=== PATIENT | male | born 1945 | race Caucasian/White ===

== ENCOUNTER 2020-09-15 16:16 | Outpatient (CLI) | payer MEDICARE, SELFPAY | END 2020-09-15 16:17 | disposition home or self-care (01) | LOC: ANHCOVIDVC 16:16 | PROVIDERS: PCP Family Medicine | DX: Z23 Encounter for immunization (principal) | CPT/HCPCS: 0001A; 91300 ==

== ENCOUNTER 2020-10-06 16:19 | Outpatient (CLI) | payer MEDICARE, SELFPAY | END 2020-10-06 16:20 | disposition home or self-care (01) | LOC: ANHCOVIDVC 16:20 | PROVIDERS: PCP Family Medicine | DX: Z23 Encounter for immunization (principal) | CPT/HCPCS: 0002A; 91300 ==

== ENCOUNTER 2021-03-10 11:13 | Outpatient (CLI) | payer MEDICARE, SELFPAY ==
--- NOTE | ~2021-03-10 | CT_ITS ---
EXAMINATION: CT lung screening DATE: 03/10/2021 11:42 INDICATION: Personal history of tobacco dependence, prior smoker with 50 pack year history TECHNIQUE: Computed tomography (CT) of the chest was performed without intravenous contrast. The dose -length product (DLP) was 198.56 mGy-cm. Automated exposure control and iterative reconstruction tech [employer] were employed. COMPARISON: None FINDINGS: There is mild emphysema. There is a 5 mm nodule of the right lower lobe on image 85. A 3 mm nodule is present in the right lower lobe on image 106. The lungs are free of acute opacities. There is no pleural effusion or pneumothorax. There is a 1.3 cm nodule of the left thyroid lobe. No pathol ogically enlarged thoracic lymph nodes are identified. The heart size is normal. Calcified coronary a rtery atherosclerosis is noted. There is mild thoracic spondylosis. IMPRESSION: 1. Lung-RADS category 2: Benign appearance or behavior. Continue annual screening with noncontrast lo w-dose chest CT in 12 months. Reviewed, dictated and finalized at location A. IMPRESSION: 1. Lung-RADS category 2: Benign appearance or behavior. Continue annual screeni ng with noncontrast low-dose chest CT in 12 months.
== END 2021-03-10 11:14 | disposition home or self-care (01) ==
PROVIDERS: PCP Family Medicine; Visit Provider Family Medicine
DX: Z12.2 Encounter for screening for malignant neoplasm of respiratory organs (principal); Z87.891 Personal history of nicotine dependence
CPT/HCPCS: 71271

== ENCOUNTER 2021-03-28 08:03 | Outpatient (CLI) | payer MEDICARE, SELFPAY ==
--- NOTE | ~2021-03-28 | US_ITS ---
EXAMINATION: US aorta [facility] scr[facility] DATE: 03/28/2021 09:21 CDT INDICATION: Diabetes. High cholesterol. TECHNIQUE: Grayscale, color Doppler, and pulsed Doppler images of the aorta and common iliac arteries were obtained. COMPARISON: None. FINDINGS: There is diffuse atherosclerosis. The proximal aorta measures 3.9 cm greatest sagittal dimension. The mid aorta measures 2.7 cm greatest sagittal dimension. The distal aorta measures 1.6 cm greatest sag ittal dimension. The right common internal iliac artery measures 1.6 cm. The left common iliac artery measures 1.6 cm. IMPRESSION: 1. Proximal abdominal aortic aneurysm measuring 3.9 cm. Reviewed, dictated and finalized at location A.
--- NOTE | ~2021-03-28 | US_ITS ---
Additional imaging US 03/28/2021 10:44 Indication: Screening for abdominal aortic aneurysm Procedure: High-resolution transabdominal ultrasound of the upper abdominal aorta Comparison: Aortic ultrasound dated 03/28/2021 Findings: There is atherosclerosis of the proximal abdominal aorta with suprarenal abdominal aortic a neurysm measuring 3.4 cm. Impression: 1: Suprarenal abdominal aortic aneurysm measuring 3.4 cm. Reviewed, dictated and finalized at location A. Impression: 1: Suprarenal abdominal aortic aneurysm measuring 3.4 cm.
== END 2021-03-28 08:04 | disposition home or self-care (01) ==
LOC: ANHIMG 08:06
PROVIDERS: PCP Family Medicine; Visit Provider Family Medicine
DX: Z13.6 Encounter for screening for cardiovascular disorders (principal); Z87.891 Personal history of nicotine dependence; I71.4 Abdominal aortic aneurysm, without rupture
CPT/HCPCS: 76706

== ENCOUNTER 2021-09-27 09:40 | Outpatient (CLI) | payer MEDICARE, SELFPAY ==
--- NOTE | ~2021-09-27 | US_ITS ---
EXAMINATION: US thyroid EXAM DATE: 09/27/2021 10:19 INDICATION: E04.1 - Nontoxic single thyroid nodule . TECHNIQUE: Multiple grayscale and Doppler images of the thyroid were obtained (by a technologist who performed the scan) and subsequently reviewed. Individual nodules and recommendations may be reporte d in accordance with TI-RADS system as designated by the 2017 ACR White Paper TI-RADS committee. The re is no prior study for comparison. FINDINGS: Right there are lobe measures 6.2 x 2.1 x 2.1 cm, the left measuring 5.7 x 2.6 x 1.9 cm. These dimens ions are moderately enlarged. There are scattered thyroid nodules. Largest nodule is category TR 4 in the left thyroid lobe measuring 1.3 cm. This category considered for biopsy if reaches 1.5 cm in size. Consider one-year follow-up. Right thyroid lobe nodules are sma ller, up to 1 cm. IMPRESSION: Multinodular goiter; recommend one-year follow-up ultrasound. Reviewed, dictated and finalized at location G.
== END 2021-09-27 09:41 | disposition home or self-care (01) ==
PROVIDERS: PCP Family Medicine; Visit Provider Family Medicine
DX: E04.2 Nontoxic multinodular goiter (principal)
CPT/HCPCS: 76536

== ENCOUNTER 2022-02-25 15:35 | Emergency (ER) | payer MEDICARE, SELFPAY ==
--- NOTE | ~2022-02-25 | CT_ITS ---
EXAMINATION: CT cervical spine wo con DATE: 02/25/2022 19:30 INDICATION: neck pain after head injury TECHNIQUE: Computed tomography (CT) of the cervical spine was performed without intravenous contrast. Automated exposure control and iterative reconstruction technique were employed. The dose-length pro duct was 390.84 mGy-cm. COMPARISON: None FINDINGS: Vertebral Body Alignment: Intact. Craniocervical and atlantoaxial alignment: Moderate degenerative change. Alignment intact. Osseous structures/fracture: No evidence of a lytic or blastic process in the visualized spine. No e vidence of acute fracture. Cervical soft tissues: The paraspinal soft tissues planes are maintained. Degenerative changes: Multilevel severe degenerative disc disease. Multilevel moderate central canal stenosis. Multilevel severe bilateral neural foraminal narrowing. IMPRESSION: No acute fracture or traumatic malalignment in the cervical spine. Reviewed, dictated and finalized at location K.
--- NOTE | ~2022-02-25 | CT_ITS ---
EXAMINATION: CT brain wo con DATE: 02/25/2022 19:30 INDICATION: head injury . TECHNIQUE: Computed tomography (CT) of the head was performed without intravenous contrast. The mA wa s adjusted according to patient size. Iterative reconstruction technique was employed. The dose-lengt h product was 605.33 mGy-cm. COMPARISON: None FINDINGS: No acute intracranial hemorrhage or extra-axial fluid collection. No hydrocephalus, mass, or herniation. No acute ischemic infarct. Unremarkable dural venous sinus attenuation. No acute osseous abnormality. Left posterior ethmoid air cell cyst or polyp. 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 Aerated spaces are clear. Mild atrophy and chronic white matter change. Atherosclerotic intracranial calcification. Bilateral l ens replacements. IMPRESSION: No acute intracranial process. Reviewed, dictated and finalized at location K.
[2022-02-25 16:29] VITALS: BP 132/86; PULSE 87; RESP 14; TEMP 36.1; O2SAT 97
[2022-02-25 18:17] VITALS: O2SAT 99
--- NOTE | 2022-02-25 18:39 | ED.GENADULT ---
HPI - General Adult General Chief complaint: Head Injury Stated complaint: head laceration Time Seen by Provider: 02/25/22 18:01 History of Present Illness HPI narrative: 76-year-old male presented to the emergency department for evaluation after receiving a head injury. Patient states he was attempting to move some furniture when a glass goblet fell and struck him on the head. Patient did receive a scalp laceration. Bleeding was controlled upon arrival to the emergency department. Patient denies any loss of consciousness. Patient states he has since developed neck pain from waiting in the waiting room. Related Data Home Medications Medication Instructions Recorded Confirmed omega-3 fatty acids 1,000 mg 1,000 mg PO DAILY 08/31/20 09/19/21 capsule (Fish Oil Concentrate) vitamins A,C,Y-dtly-mydeec 14,320 1 cap PO BID 08/31/20 09/19/21 unit-226 mg-200 unit capsule (PreserVision AREDS) Allergies Allergy/AdvReac Type Severity Reaction Status Date / Time No Known Allergies Allergy Verified 02/25/22 18:22 [facility] Past Medical History Medical History Left thyroid nodule Surgical History Surgical History History of surgical procedure on eye proper using laser (~2018) Family History Family History Grandparent Diabetes mellitus Mother Diabetes mellitus Family history of malignant neoplasm of cervix Social History Social History Second hand tobacco smoke exposure: No Smoking end date: 07/08/16 Alcohol intake: never Exam Narrative: APPEARANCE: Well appearing, no pain, no distress, well-nourished. HEAD: normocephalic, atraumatic. EYES: PERRLA/EOMI, conjunctivae clear. NOSE: Normal no drainage NECK: Supple. No adenopathy, no masses. RESPIRATORY: Airway patent, respirations nonlabored. Clear to auscultation bilaterally, no rales, rhonchi, wheezing. CARDIOVASCULAR: Regular rate and rhythm without murmurs rubs or gallops. ABDOMINAL: Soft, nontender, nondistended, normal bowel sounds MUSCULOSKELETAL: Moves all extremities. Strength/ROM intact, No edema, No calf tenderness. NEURO: Alert. Cranial nerves II through XII intact. Good gait. Good coordination SKIN: Scalp laceration PSYCHIATRIC: Normal affect/mood. Course Course Emergency Course: Head and neck CT were negative. Scalp laceration was repaired with chico as described. Patient was comfortable to plan for discharge and close follow-up. Vital Signs Vital signs: Vital Signs Temperature 97.0 F L 02/25/22 16:29 Pulse Rate 87 02/25/22 16:29 Respiratory Rate 14 02/25/22 16:29 Blood Pressure 132/86 02/25/22 16:29 Pulse Oximetry 97 02/25/22 16:29 Oxygen Delivery Room Air 02/25/22 16:29 Temperature 97.0 F L 02/25/22 16:29 Pulse Rate 56 L 02/25/22 20:02 Respiratory Rate 20 02/25/22 20:02 Blood Pressure 128/82 02/25/22 20:02 Pulse Oximetry 97 02/25/22 20:02 Oxygen Delivery Room Air 02/25/22 18:17 Procedures Laceration Laceration 1: Date: 02/25/22 Time: 20:00 Site: scalp Description: linear Depth: simple, single layer Local Anesthetic: lidocaine 1% Amount of anesthesia used (mL): 3 Pre-repair: wound explored and irrigated ====== Skin Level ====== Skin layer closed with: chico Number of sutures: 3 ====== Subcutaneous Layer ====== ====== Muscle Layer ====== ====== Tendon Layer ====== Medical Decision Making Vital Signs Vital Signs: Vital Signs Temperature 97.0 F L 02/25/22 16:29 Pulse Rate 87 02/25/22 16:29 Respiratory Rate 14 02/25/22 16:29 Blood Pressure 132/86 02/25/22 16:29 Pulse Oximetry 97 02/25/22 16:29 Oxygen Delivery Room Air 02/25/22 16:29 [place]a
[2022-02-25 20:02] VITALS: BP 128/82; PULSE 56; RESP 20; O2SAT 97
== END 2022-02-25 20:16 | disposition home or self-care (01) ==
PROVIDERS: Emergency Provider Emergency Medicine; PCP Family Medicine
DX: S01.01XA Laceration without foreign body of scalp, initial encounter (principal); Z87.891 Personal history of nicotine dependence; W20.8XXA Other cause of strike by thrown, projected or falling object, initial encounter
CPT/HCPCS: 12001; 70450; 72125; 99282; 99284

== ENCOUNTER 2022-04-17 07:33 | Outpatient (CLI) | payer MEDICARE, SELFPAY ==
--- NOTE | ~2022-04-17 | US_ITS ---
EXAMINATION: US aorta DATE: 04/17/2022 08:46 INDICATION: Abdominal aortic aneurysm without rupture. TECHNIQUE: Grayscale, color Doppler, and pulsed Doppler images of the aorta and common iliac arteries were obtained. COMPARISON: CT chest 04/17/2022, ultrasound aorta 03/28/2021 FINDINGS: The aorta demonstrates a 3.2 cm fusiform infrarenal aneurysm. The right common iliac artery is normal in caliber. The left common iliac artery is normal in caliber. IMPRESSION: 1. Stable 3.2 cm fusiform infrarenal aortic aneurysm. Reviewed, dictated and finalized at location A.
--- NOTE | ~2022-04-17 | CT_ITS ---
EXAMINATION: CT lung screening DATE: 04/17/2022 07:57 INDICATION: Personal history of nicotine dependence, prior smoker with 30 pack year history TECHNIQUE: Computed tomography (CT) of the chest was performed without intravenous contrast. The dose -length product (DLP) was 170.28 mGy-cm. Automated exposure control and iterative reconstruction tech [employer] were employed. COMPARISON: 03/10/2021 FINDINGS: There is mild emphysema. There is a stable 5 mm nodule of the right lower lobe on image 89. There is a stable 3 mm nodule of the right lower lobe on image 112. No pleural effusion or pneumotho rax. The lungs are free of acute opacities. No pathologically enlarged thoracic lymph nodes are ident ified. The heart size is normal. A stable left thyroid nodule is noted. There is calcified coronary a rtery atherosclerosis. There is a 2 mm nonobstructing stone of the left kidney upper pole. There is m ild thoracic spondylosis. IMPRESSION: 1. Lung-RADS category 2: Benign appearance or behavior. Continue annual screening with noncontrast lo w-dose chest CT in 12 months. Reviewed, dictated and finalized at location A. IMPRESSION: 1. Lung-RADS category 2: Benign appearance or behavior. Continue annual screeni ng with noncontrast low-dose chest CT in 12 months.
== END 2022-04-17 07:34 | disposition home or self-care (01) ==
PROVIDERS: PCP Family Medicine; Visit Provider Nurse Practitioner Family
DX: Z12.2 Encounter for screening for malignant neoplasm of respiratory organs (principal); Z87.891 Personal history of nicotine dependence; I71.40 Abdominal aortic aneurysm, without rupture, unspecified
CPT/HCPCS: 71271; 76775

== ENCOUNTER 2022-04-30 09:36 | Outpatient (CLI) | payer MEDICARE, SELFPAY ==
--- NOTE | ~2022-04-30 | NM_ITS ---
EXAMINATION: NM tory stress w perfusion DATE: 04/30/2022 11:59 INDICATION: Dyspnea on exertion TECHNIQUE: Rest images were obtained following intravenous administration of 10.6 mCi Tc99m tetrofosm in (Myoview). The patient was infused intravenously with Lexiscan (Regadenoson). Then, 31.8 mCi Tc99m tetrofosmin (Myoview) was administered intravenously, and stress images were obtained. Data was sandra nstructed into short axis and horizontal and vertical long axis SPECT images. Gated SPECT images were also obtained. COMPARISON: None. FINDINGS: There is no definite reversible or fixed perfusion abnormality to suggest ischemia or infar ction. There is normal left ventricular chamber size, wall motion and ejection fraction. Left ventr icular ejection fraction measures 67%. IMPRESSION: 1. Normal myocardial perfusion at rest and during stress. 2. Left ventricular ejection fraction measuring 67%. Reviewed, dictated and finalized at location A.
--- NOTE | 2022-04-30 09:38 | EST_ITS ---
Patient Info Name: Kwasi Jordan Age: 76 years : 1945 Gender: Male Ht: 72 in Wt: 209 lbs BSA: 2.21 m2 Exam Date: 04/30/2022 10:40 AM Exam Location: [facility] Stress Patient Status: Outpatient Admit Date: 04/30/2022 Staff Ordering Physician: Judy Orellana NP Attending Provider: Judy Orellana NP Exercise Technologist: Elizabeth Junior RDCS Exercise Physician: Ty Vickers DO Exam Type: CA stress tory w NM Study Info Indications R06.09 - Other forms of dyspnea A regadenoson stress test was performed. Summary 1. 1. Negative lexiscan stress test for ischemic ST changes by ECG criteria. 2. 2. Stable hemodynamics throughout the test. 3. 3. Nuclear scan to follow and will be reported separately. Please correlate with it. 4. 4. Patient informed of the above results. Protocol: Lexiscan Stress ECG Details Stage: REST Duration (min): 0 min : 41 sec HR (bpm): 59 SBP (mmHg): 129 DBP (mmHg): 76 Stage: REST Duration (min): 5 min : 14 sec HR (bpm): 59 SBP (mmHg): 129 DBP (mmHg): 76 Stage: STAGE 1 Duration (min): 1 min : 0 sec HR (bpm): 56 SBP (mmHg): 115 DBP (mmHg): 76 Stage: RECOVERY Duration (min): 1 min : 0 sec HR (bpm): 69 SBP (mmHg): 124 DBP (mmHg): 74 Stage: RECOVERY Duration (min): 2 min : 0 sec HR (bpm): 70 SBP (mmHg): 124 DBP (mmHg): 74 Stage: RECOVERY Duration (min): 3 min : 0 sec HR (bpm): 70 SBP (mmHg): 121 DBP (mmHg): 74 Stage: RECOVERY Duration (min): 3 min : 3 sec HR (bpm): 70 SBP (mmHg): 121 DBP (mmHg): 74 Rest HR: 59 bpm Peak HR: 71 bpm Rest Sys BP: 129 mmHg Peak Sys BP: 124 mmHg Max Pred HR: 145 bpm % Max Pred HR: 49 % Target HR: 123 bpm Max RPP: 8,804 bpm*mmHg Termination Reason: Completed protocol Cardiac Symptoms: Shortness of breath Total Time: 1 min : 0 sec Rest Wilkins BP: 76 mmHg Peak Wilkins BP: 74 mmHg Total Dose: 0.4 mg Resting ECG Sinus bradycardia. Stress ECG No ST changes. Arrhythmias None. Report Signatures
== END 2022-04-30 09:37 | disposition home or self-care (01) ==
PROVIDERS: PCP Family Medicine; Visit Provider Nurse Practitioner Family
DX: R06.09 Other forms of dyspnea (principal)
CPT/HCPCS: 78452; 93017; A9502; J2785

== ENCOUNTER 2022-06-08 15:53 | Emergency (ER) | payer MEDICARE, SELFPAY ==
[2022-06-08 16:02] VITALS: BP 96/64; PULSE 70; RESP 16; TEMP 36.1; O2SAT 97
--- NOTE | 2022-06-08 16:26 | ED.URI ---
HPI - URI/Sore Throat General Chief Complaint: Upper Respiratory Infection Stated Complaint: cough, sore throat, sinus drainage Time Seen by Provider: 06/08/22 16:05 Source: patient Mode of arrival: ambulatory Limitations: no limitations History of Present Illness HPI Narrative: Kwasi is a 76-year-old male patient presenting to the clinic today with complaints of cough, sore throat, and nasal drainage x1-2days. He denies any chest pain, shortness of breath, fever or chills. MD elicited complaint: sore throat and nasal congestion Related Data Home Medications Medication Instructions Recorded Confirmed omega-3 fatty acids 1,000 mg 1,000 mg PO DAILY 08/31/20 04/05/22 capsule (Fish Oil Concentrate) vitamins A,C,Z-aulr-hwaang 14,320 1 cap PO BID 08/31/20 04/05/22 unit-226 mg-200 unit capsule (PreserVision AREDS) ferrous sulfate 325 mg (65 mg 325 mg PO DAILY 04/05/22 04/05/22 iron) tablet (Feosol) Allergies Allergy/AdvReac Type Severity Reaction Status Date / Time No Known Allergies Allergy Verified 06/08/22 16:14 Review of Systems Review of Systems: Pertinent positives per HPI. Patient denies any fever, chills, rash, headache, visual changes, dizziness, shortness of breath, chest pain, palpitations, nausea, vomiting, diarrhea, constipation, abdominal pain, or any urinary issues. [facility] Past Medical History Medical History Abdominal aortic aneurysm (AAA) 3.0 cm to 5.5 cm in diameter in male Depression Dyslipidemia Erectile dysfunction Former smoker History of subdural hematoma Idiopathic peripheral neuropathy Left thyroid nodule Type 2 diabetes mellitus without complication, without long-term current use of insulin Surgical History Surgical History History of surgical procedure on eye proper using laser (~2018) Family History Family History Grandparent Diabetes mellitus Mother Diabetes mellitus Family history of malignant neoplasm of cervix Social History Social History Smoking status: Former smoker Second hand tobacco smoke exposure: No Smoking end date: 07/08/16 Alcohol intake: never Substance use: never Substance use type: does not use Additional living arrangements comments: Gender identity (if verbalized by the patient): Male Sexual Orientation (if Verbalized by the Patient): Straight or Heterosexual Comments At the time of my signature, I reviewed and agree with the nursing past medical, surgical, social, and family history. There is no relevant family history pertinent to the patient complaint. Exam Narrative: General: Well-developed, well nourished, in no apparent distress Head: Normocephalic, atraumatic Eyes: Pupils equally round and reactive to light bilaterally, EOM intact, sclera and conjunctive clear, no discharge, lids normal Ears: TMs intact and clear, ear canals clear, no drainage, grossly hearing normal. Nose: Nares patent, no discharge, no inflammation, no sinus tenderness. Mouth: Oral pharynx without lesions or masses, good dentition, MMM. Neck: Supple, trachea midline, no enlargement of anterior or posterior cervical nodes, no thyroid masses or goiter palpable. Cardio: Regular rate and rhythm, s1 and s2 normal, no murmur appreciated. Resp: Clear to auscultation bilaterally, no rhonchi, rales, wheezing or rubs Course Course Emergency Course: Portions of this record may have been created with voice recognition software. Level of Care: Express Care Visit Vital Signs Vital signs: Vital Signs Temperature 36.1 C L 06/08/22 16:02 Pulse Rate 70 06/08/22 16:02 Respiratory Rate 16 06/08/22 16:02 Blood Pressure 96/64 L 06/08/22 16:02 Pulse Oximetry 97 06/08/22 16:02 Temperature
== END 2022-06-08 16:34 | disposition home or self-care (01) ==
PROVIDERS: Emergency Provider Nurse Practitioner Family; PCP Family Medicine
DX: J06.9 Acute upper respiratory infection, unspecified (principal); E11.9 Type 2 diabetes mellitus without complications; Z87.891 Personal history of nicotine dependence; Z20.822 Contact with and (suspected) exposure to COVID-19
CPT/HCPCS: 87426; 87804; 99213; C9803; G0463

== ENCOUNTER 2022-07-02 12:12 | Emergency (ER) | payer MEDICARE, SELFPAY ==
--- NOTE | ~2022-07-02 | XR_ITS ---
EXAMINATION: XR chest 2V Exam Date/Time: 07/02/2022 14:29 [employer] HISTORY: COUGH X 1 MONTH Comparison: 08/02/2018. RESULT: Lines, tubes, and devices: None. Lungs and pleura: Clear. Low volumes in the lateral view. Senescent changes. Cardiomediastinal silhouette: Stable. Other: No acute osseous or upper abdominal finding. IMPRESSION: No acute cardiopulmonary process. Reviewed, dictated and finalized at location K. [employer]
[2022-07-02 13:42] VITALS: BP 125/73; PULSE 72; RESP 16; TEMP 36.8; O2SAT 100
--- NOTE | 2022-07-02 14:25 | ED.URI ---
HPI - URI/Sore Throat General Chief Complaint: Upper Respiratory Infection Stated Complaint: cough, congestion, sore throat Time Seen by Provider: 07/02/22 14:23 Source: patient and RN notes reviewed Mode of arrival: ambulatory Limitations: no limitations History of Present Illness HPI Narrative: 76-year-old male presents concern for one-month history of cough, congestion, sore throat. He reports he was seen at the beginning of June and was treated with prednisone and cough medicine. Reports symptoms have not improved. He reports he feels his cough is worsening, he reports chest congestion. He reports fatigue MD elicited complaint: cough and sore throat Related Data Home Medications Medication Instructions Recorded Confirmed omega-3 fatty acids 1,000 mg 1,000 mg PO DAILY 08/31/20 04/05/22 capsule (Fish Oil Concentrate) vitamins A,C,J-cycy-ldsbxq 14,320 1 cap PO BID 08/31/20 04/05/22 unit-226 mg-200 unit capsule (PreserVision AREDS) ferrous sulfate 325 mg (65 mg 325 mg PO DAILY 04/05/22 04/05/22 iron) tablet (Feosol) Allergies Allergy/AdvReac Type Severity Reaction Status Date / Time No Known Allergies Allergy Verified 07/02/22 14:18 Review of Systems Review of Systems: CONSTITUTIONAL: Reports malaise, fatigue EYES: Denies visual changes, redness, or discharge. ENT: Reports rhinorrhea, congestion and sinus pain, otalgia and sore throat. CARDIOVASCULAR: Denies chest pain, palpitations, or edema. RESPIRATORY: Reports cough chest congestion. Denies dyspnea. GASTROINTESTINAL: Denies abdominal pain, nausea, vomiting, diarrhea SKIN: Denies rash or itching. MUSCULOSKELETAL: Denies myalgia. NEUROLOGIC: Denies headache. All systems reviewed & are unremarkable except as noted in HPI and below PMFSH Past Medical History Medical History Abdominal aortic aneurysm (AAA) 3.0 cm to 5.5 cm in diameter in male Depression Dyslipidemia Erectile dysfunction Former smoker History of subdural hematoma Idiopathic peripheral neuropathy Left thyroid nodule Type 2 diabetes mellitus without complication, without long-term current use of insulin Surgical History Surgical History History of surgical procedure on eye proper using laser (~2018) Family History Family History Grandparent Diabetes mellitus Mother Diabetes mellitus Family history of malignant neoplasm of cervix Social History Social History Smoking status: Former smoker Second hand tobacco smoke exposure: No Smoking end date: 07/08/16 Alcohol intake: never Substance use: never Substance use type: does not use Additional living arrangements comments: Gender identity (if verbalized by the patient): Male Sexual Orientation (if Verbalized by the Patient): Straight or Heterosexual Comments At time of signature, agree with nursing past medical, surgical, social and family history. There is no relevant family history pertinent to the presenting complaint Exam Narrative: GENERAL: Well-appearing, well-nourished, and in no acute distress. HEAD: Normocephalic EYES: PERRLA, conjunctivae clear ENT: Nares clear, turbinates edematous and erythematous, clear discharge. Mucous membranes moist. TM pearly small with dull light reflex bilaterally; no tragal tenderness. Oropharynx not erythematous without lesions. Tonsils not enlarged and without exudate, no drooling, no hoarseness, no trismus, uvula midline. NECK: Supple. No lymphadenopathy CHEST: Clear to auscultation, breath sounds equal. No wheezing, rhonchi, rales, or stridor. No respiratory distress, speaks in full sentences. HEART: Regular rate and rhythm. No murmur heard. SKIN: Warm, dry, no rash. NEURO: Alert and oriented x3. PSYCH: Normal mood
== END 2022-07-02 15:00 | disposition home or self-care (01) ==
PROVIDERS: Emergency Provider Nurse Practitioner; PCP Family Medicine
DX: J32.9 Chronic sinusitis, unspecified (principal); J40 Bronchitis, not specified as acute or chronic; E11.9 Type 2 diabetes mellitus without complications; E78.5 Hyperlipidemia, unspecified; Z87.891 Personal history of nicotine dependence
CPT/HCPCS: 71046; 99213; G0463

== ENCOUNTER 2023-04-26 14:57 | Outpatient (CLI) | payer MEDICARE, SELFPAY ==
--- NOTE | ~2023-04-26 | CT_ITS ---
EXAMINATION: CT lung screening DATE: 04/26/2023 15:14 INDICATION: Personal history nicotine dependence, prior smoker with 30 pack year history TECHNIQUE: Computed tomography (CT) of the chest was performed without intravenous contrast. The dose -length product (DLP) was 293.32 mGy-cm. Automated exposure control and iterative reconstruction tech [employer] were employed. COMPARISON: 04/17/2022 FINDINGS: There is mild emphysema. There is a stable 5 mm nodule of the right lower lobe on image 81. There is a stable 3 mm right lower lobe nodule on image 106. No new pulmonary nodules are identified . The lungs are free of acute opacities. No pleural effusion or pneumothorax. No pathologically enlar ged thoracic lymph nodes are identified. The heart size is normal. Calcified coronary artery atherosc lerosis is noted. There are nonobstructing stones of the kidneys. Peripelvic cysts are also noted in the kidneys. There is a stable nodule of the left thyroid lobe. IMPRESSION: 1. Lung-RADS category 2: Benign appearance or behavior. Continue annual screening with noncontrast lo w-dose chest CT in 12 months. Reviewed, dictated and finalized at location F. IMPRESSION: 1. Lung-RADS category 2: Benign appearance or behavior. Continue annual screeni ng with noncontrast low-dose chest CT in 12 months.
== END 2023-04-26 14:58 | disposition home or self-care (01) ==
PROVIDERS: PCP Family Medicine; Visit Provider Family Medicine
DX: Z12.2 Encounter for screening for malignant neoplasm of respiratory organs (principal); Z87.891 Personal history of nicotine dependence
CPT/HCPCS: 71271

== ENCOUNTER 2023-05-14 09:54 | Outpatient (CLI) | payer MEDICARE, SELFPAY ==
--- NOTE | ~2023-05-14 | US_ITS ---
EXAMINATION: US thyroid DATE: 05/14/2023 11:26 INDICATION: Nontoxic single thyroid nodule TECHNIQUE: Multiple ultrasound images of the thyroid were obtained. COMPARISON: None. FINDINGS: The right thyroid lobe measures 5.6 x 2.2 x 2.6 cm. The left thyroid lobe measures 5.7 x 2.6 x 2.5 c m. Multiple bilateral thyroid nodules. 1.3 cm wider than tall very hypoechoic nodule in the right th yroid lobe with smooth margins and without echogenic foci which is not definitively cystic (TI-RADS 4 , moderately suspicious , FNA if >=1.5 cm, annual followup is >=1 cm). There is a smaller 10 mm wide than tall solid very hypoechoic nodule with internal echogenic foci in the lateral right thyroid (TI- RADS 5, highly suspicious , FNA if >=1.0 cm, annual followup is >0.5 cm). 1.1 cm solid wider than isaac l isoechoic nodule with smooth to ill-defined margins and without echogenic foci in the more inferior right thyroid (TI-RADS 3, mildly suspicious , FNA if >=2.5 cm, annual followup is >=1.5 cm). There i s a 9 mm TI RADS 3 nodule with similar imaging features at the inferior left thyroid. 1.4 cm solid is oechoic taller than wide TI RADS 4 nodule with smooth to ill-defined margins and without echogenic fo ci also in the inferior left thyroid. There are also a few subcentimeter hypoechoic TI RADS 4 solid n odules in the left thyroid. IMPRESSION: 1. Multinodular goiter. Recommend ultrasound-guided biopsy of the 1 cm TI RADS 5 nodule in the right thyroid lobe. Reviewed, dictated and finalized at location A. L GRINDER
--- NOTE | ~2023-05-14 | US_ITS ---
EXAMINATION: US aorta DATE: 05/14/2023 11:25 INDICATION: Abdominal aortic aneurysm TECHNIQUE: Grayscale, color Doppler, and pulsed Doppler images of the aorta and common iliac arteries were obtained. COMPARISON: 04/17/2022 FINDINGS: Maximum vascular dimensions are as follows: Proximal aorta: 2.8 cm Mid aorta: 2.5 cm Distal aorta: 3.2 cm Right common iliac artery: 1.3 cm Left common iliac artery: 1.5 cm Stable fusiform infrarenal abdominal aortic aneurysm. IMPRESSION: 1. Stable fusiform infrarenal abdominal aortic aneurysm. Reviewed, dictated and finalized at location L. LINING CLOSER
== END 2023-05-14 09:55 | disposition home or self-care (01) ==
PROVIDERS: PCP Family Medicine; Visit Provider Family Medicine
DX: E04.2 Nontoxic multinodular goiter (principal); I71.40 Abdominal aortic aneurysm, without rupture, unspecified
CPT/HCPCS: 76536; 76775

== ENCOUNTER 2023-06-05 12:45 | Outpatient (CLI) | payer MEDICARE, SELFPAY ==
--- NOTE | ~2023-06-05 | US_ITS ---
EXAMINATION: US FNA w image guidance DATE: 06/05/2023 13:43 INDICATION: Nontoxic multinodular goiter. TECHNIQUE: The procedure and its benefits and risks were discussed with the patient. Risks specifically discusse d included bleeding. The patient verbalized understanding of the risks and agreed to proceed. The nec k was prepped and draped in the usual sterile manner. 1% lidocaine was used for local anesthesia. 6 passes were made with a 25G needle into the lesion under ultrasound guidance. There were no immedia te complications. FINDINGS: Grayscale ultrasound images demonstrate needles advanced into a 10 mm nodule in right thyroid lobe fo r biopsy. IMPRESSION: 1. Ultrasound-guided fine needle aspiration of a 10 mm nodule in right thyroid lobe. Reviewed, dictated and finalized at location A. [employer]
== END 2023-06-05 12:46 | disposition home or self-care (01) ==
PROVIDERS: PCP Family Medicine; Visit Provider Family Medicine
DX: E04.2 Nontoxic multinodular goiter (principal)
CPT/HCPCS: 10005; 88173; 88305

== ENCOUNTER 2023-10-28 15:37 | Outpatient (CLI) | payer MEDICARE, SELFPAY ==
--- NOTE | ~2023-10-28 | XR_ITS ---
XR hip LT min 2V 10/28/2023 15:56 Indication: Left hip pain Procedure: 2 views left hip Comparison: No prior studies for comparison. Findings: There is mild osteoarthritis of the left hip. No fracture, subluxation or dislocation. No s ignificant soft tissue abnormality. No foreign bodies. Impression: 1: Mild osteoarthritis of the left hip. Reviewed, dictated and finalized at location B. Impression: 1: Mild osteoarthritis of the left hip.
== END 2023-10-28 15:38 ==
PROVIDERS: PCP Family Medicine; Visit Provider Anesthesiology
DX: M16.12 Unilateral primary osteoarthritis, left hip (principal)
CPT/HCPCS: 73502

== ENCOUNTER 2024-01-10 08:44 | Outpatient (CLI) | payer MEDICARE, SELFPAY ==
--- NOTE | 2024-01-10 | ECG_ITS ---
Test Date: 2024-01-10 10:30:20 Measurements Intervals [place] Rate: 65 P: 49 NH: 225 QRS: 23 QRSD: 87 T: 42 QT: 374 QTc: 389 Interpretive Statements SINUS RHYTHM WITH FIRST DEGREE AV BLOCK EARLY PRECORDIAL R/S TRANSITION BORDERLINE ECG No previous ECG available for comparison Electronically Signed On 01-10-2024 10:40:55 CDT by Ty Vickers D.O.
--- NOTE | ~2024-01-10 | XR_ITS ---
XR chest 2V Ordering provider: Bud Jackson, History: 78 years Male with . PRE PROCEDURE TESTING, SPINAL CORD STIMULATOR, H/O DIABETES . Comparison: None. FINDINGS: MEDIASTINUM: The cardiac silhouette is not enlarged. LUNGS: No infiltrates, effusions or pneumothorax. OTHER: No free air under the diaphragm. Degenerative changes of the spine. Dextroscoliosis. IMPRESSION: No acute cardiopulmonary pathology. Reviewed, dictated and finalized at location A.
--- NOTE | ~2024-01-10 | CT_ITS ---
EXAMINATION: CT thoracic spine wo con DATE: 01/10/2024 09:34 INDICATION: Radiculopathy of thoracic region. TECHNIQUE: Computed tomography (CT) of the thoracic spine was performed without intravenous contrast. Automated exposure control and iterative reconstruction technique were employed. The dose-length pro duct was 797.54 mGy-cm. COMPARISON: None FINDINGS: There is 13 degrees levoscoliosis of upper thoracic spine and 14 degrees dextroscoliosis of lower thoracic spine. There is mild chronic anterior wedging of T11-L1 vertebral bodies. There is mi ldly decreased disc height at most thoracic levels. There is multilevel mild to moderate facet joint osteoarthritis. There is mild neural foraminal stenosis at a few levels on either side. No central ca nal stenosis. IMPRESSION: 1. Mild thoracic spondylosis. 2. Scoliosis. Reviewed, dictated and finalized at location A.
[2024-01-10 10:17] LABS: Appearance Urine Clear (Clear); Bilirubin Urine Negative (Negative); Blood Urine Negative (Negative); Color Urine Yellow (Yellow); Glucose Urine UA Negative (Negative); Ketones Urine Trace mg/dL (Negative); Leukocyte Esterase Ur Negative LEU/UL (Negative); Nitrate Urine Negative (Negative); Protein Urine Negative (Negative); Urobilinogen Urine 0.2 mg/dL (<2.0); pH Urine 5.5 (5.0-9.0)
[2024-01-10 10:17] LABS: Hematocrit 41.3 % (42.0-52.0); Hemoglobin 14.2 g/dL (14.0-18.0); Mean Corpuscular HGB Conc 34.4 g/dl (32-36); Mean Corpuscular Hemoglobin 32.3 pg (26-34); Mean Corpuscular Volume 94.1 fl (80-100); Platelet Count Result 221 k/mm3 (150-375); Red Blood Count 4.39 M/mm3 (4.6-6.20); Red Cell Distribution Width 12.3 % (11.5-14.5); White Blood Count 6.2 K/mm3 (4.5-10.0)
[2024-01-10 10:19] LABS: Add Urine Microscopic? YES
[2024-01-10 10:30] LABS: Partial Thromboplastin Time 22.4 Seconds (22.3-36.8)
[2024-01-10 10:31] LABS: Prothrombin Time 13.3 Seconds (11.1-14.7)
[2024-01-10 10:33] LABS: Anion Gap 6 mmol/L (4-12); Blood Urea Nitrogen 26 mg/dL (9-20); CRP < 0.5 mg/dL (<1.0); Calcium 9.6 mg/dL (8.4-10.2); Carbon Dioxide 28 mmol/L (22-30); Chloride 105 mmol/L (98-107); Estimated Glomerular Filt Rate > 60; Glucose 162 mg/dL (65-110); Potassium 4.6 mmol/L (3.4-5.0); Sodium 139 mmol/L (137-145)
[2024-01-10 10:41] LABS: Erythrocyte Sedimentation Rate 15 mm/hr (0-20)
== END 2024-01-10 08:45 | disposition home or self-care (01) ==
PROVIDERS: PCP Family Medicine; Visit Provider Anesthesiology
DX: M47.24 Other spondylosis with radiculopathy, thoracic region (principal); M41.9 Scoliosis, unspecified; I44.0 Atrioventricular block, first degree
CPT/HCPCS: 36415; 71046; 72128; 80048; 81001; 85025; 85610; 85652; 85730; 86140; 93005

== ENCOUNTER 2024-04-24 09:56 | Outpatient (CLI) | payer MEDICARE, SELFPAY ==
--- NOTE | ~2024-04-24 | US_ITS ---
EXAMINATION: US aorta DATE: 04/24/2024 11:42 CDT INDICATION: Follow-up aortic aneurysm TECHNIQUE: Grayscale, color Doppler, and pulsed Doppler images of the aorta and common iliac arteries were obtained. COMPARISON: None. FINDINGS: The proximal aorta measures 1.9 cm greatest sagittal dimension. The mid aorta measures 1.9 cm greates t sagittal dimension. The distal aorta measures 1.8 cm greatest sagittal dimension. The right common internal iliac artery measures 11 mm. The left common iliac artery measures 11 mm.. IMPRESSION: 1. Normal caliber aorta without evidence for aneurysm. Reviewed, dictated and finalized at location B.
== END 2024-04-24 09:57 | disposition home or self-care (01) ==
PROVIDERS: PCP Family Medicine; Visit Provider Family Medicine
DX: I71.40 Abdominal aortic aneurysm, without rupture, unspecified (principal)
CPT/HCPCS: 76775

== ENCOUNTER 2024-06-06 16:25 | Emergency (ER) | payer MEDICARE, SELFPAY ==
[2024-06-06] VITALS (18 sets, daily range): BP systolic 97–138; BP diastolic 60–72; PULSE 83–94; RESP 12–26; TEMP 37.1; O2SAT 95–100
--- NOTE | ~2024-06-06 | CT_ITS ---
EXAMINATION: CTA brain carotid DATE: 06/06/2024 17:56 INDICATION: Right leg weakness TECHNIQUE: Computed tomographic angiography (CTA) of the head was performed without and with 100 mL O mnipaque-350 intravenous contrast. CTA of the neck was performed with intravenous contrast. Automated exposure control and iterative reconstruction technique were employed. The dose-length product was 1 773.62 mGy-cm. Maximum intensity projection and volume rendered 3D-reconstructions were created by shashank lee technologist on a separate workstation. COMPARISON: CT brain 02/25/2022. FINDINGS: CT BRAIN: No acute large vessel infarct, intracranial hemorrhage, mass, or hydrocephalus. Pedunculated 12 mm os seous lesion extending from the nasal septum into the right maxillary sinus, with a 3 mm thick cartil aginous cap. The remaining aerated spaces are clear. Mild atrophy and chronic white matter change. At herosclerotic intracranial calcification. Bilateral lens replacements. CTA HEAD: No large vessel occlusion, aneurysm, high flow vascular malformation, nidus or extravasation. CTA NECK: Aortic arch and proximal great vessels: Normal arch anatomy. Mild arch calcification. Symmetric paren chymal enhancement. Patent cerebral veins. Right common carotid, carotid bifurcation, and internal carotid artery: Mild calcification at the bif urcation.There is 0% stenosis of the proximal right internal carotid artery relative to normal distal artery lumen diameter (NASCET criteria). Left common carotid, carotid bifurcation, and internal carotid artery: Mild calcification at the bifu rcation.There is 0% stenosis of the proximal left internal carotid artery relative to normal distal a rtery lumen diameter (NASCET criteria). Vertebral arteries: No significant plaque or stenosis. Other findings: Degenerative changes in the cervical spine. Periodontal disease. 11 mm right thyroid lobe nodule which requires no additional evaluation at this time. IMPRESSION: No acute intracranial process. 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 Thickening of the cartilaginous cap, which can be a worrisome feature. Recommend ENT consultation for possible resection. No large vessel intracranial occlusion, high-grade intracranial stenosis, or aneurysm. No carotid or vertebral artery occlusion, dissection, or significant stenosis. Reviewed, dictated and finalized at location K. SUPERVISOR IMPRESSION: No acute intracranial process. 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 Thickening of the cartilaginous cap, which can be a worrisome feature. Recommend ENT consultation for possible resec tion. No large vessel intracranial occlusion, high-grade intracranial stenosis, or an eurysm. No carotid or vertebral artery occlusion, dissection, or significant stenosis.
--- NOTE | ~2024-06-06 | XR_ITS ---
EXAMINATION: XR chest 2V Exam Date/Time: 06/06/2024 17:20 PRINTING GRAY CLOTH TENDER HISTORY: weak Comparison: 01/10/2024. RESULT: Lines, tubes, and devices: Stimulator leads project over the midthoracic spine. Lungs and pleura: Senescent change. Streaky bibasilar scar/atelectasis. Cardiomediastinal silhouette: Stable. Other: No acute osseous or upper abdominal finding. IMPRESSION: No acute cardiopulmonary process. Reviewed, dictated and finalized at location K. TING GRAY CLOTH TENDER
--- NOTE | ~2024-06-06 | CT_ITS ---
EXAMINATION: CT lumbar spine wo con DATE: 06/06/2024 17:43 INDICATION: Right leg weakness . TECHNIQUE: Computed tomography (CT) of the lumbar spine was performed without intravenous contrast. A utomated exposure control and iterative reconstruction technique were employed. The dose-length produ ct was 1132.48 mGy-cm. COMPARISON: X-ray L-spine 08/18/2018. FINDINGS: 5 nonrib-bearing lumbar-type vertebral bodies. Pedicles intact. Mild scoliosis. Right poste rior stimulator pack, lead tips are out of the [id number]. Lumbar straightening. Stable grade 1 re trolisthesis at L4-5. Stable grade 1 anterolisthesis at L5-S1. Chronic bilateral L5 pars defects. Chr onic mild anterior wedge deformity at L1. Multilevel severe lumbar degenerative disc disease. Multile robert facet arthropathy, with interspinous narrowing. Severe right neural foraminal narrowing at L3-4 a nd L5-S1. Severe left neural foraminal narrowing at L4-5, secondary to degenerative changes. No sever e central canal narrowing. 6 mm central extrusion from the L5-S1 disc. Atherosclerotic calcifications .. IMPRESSION: No acute fracture or traumatic malalignment in the lumbar spine. Reviewed, dictated and finalized at location K. UCTION BOW MAKER
--- NOTE | 2024-06-06 16:31 | ECG_ITS ---
Test Date: 2024-06-06 16:37:05 Measurements Intervals [place] Rate: 93 P: 209 NM: 339 QRS: 33 QRSD: 97 T: 40 QT: 362 QTc: 450 Interpretive Statements SINUS RHYTHM WITH SIGNIFICANT BASELINE ARTIFACT INCOMPLETE RIGHT BUNDLE BRANCH BLOCK EARLY PRECORDIAL R/S TRANSITION BASELINE ARTIFACT- I, II, III, AVR, AVL, AVF, V1-V6 BORDERLINE ECG Compared to ECG 01/10/2024 10:30:20 NO SIGNIFICANT CHANGE Electronically Signed On 06-06-2024 16:48:52 RHEUMATOLOGY SPECIALIST by Ty Vickers D.O.
[2024-06-06 16:45] LABS: Basophils Absolute Auto 0.1 K/mm3 (0.0-0.1); Basophils Percent Auto 1.2 % (0.2-1.2); Eosinophils Absolute Auto 0.1 K/mm3 (0-0.3); Eosinophils Percent Auto 1.8 % (0-4.4); Hematocrit 38.3 % (42.0-52.0); Immature Granulocyte Absolute 0.02 K/mm3 (0.00-0.031); Immature Granulocyte Percent A 0.3 % (0-0.5); Lymphocytes Absolute Auto 2.01 K/mm3 (0.9-3.2); Lymphocytes Percent Auto 25.8 % (18.3-44.2); Mean Corpuscular HGB Conc 33.9 g/dl (32-36); Mean Corpuscular Hemoglobin 32.4 pg (26-34); Mean Corpuscular Volume 95.5 fl (80-100); Mean Platelet Volume 9.2 fl (7.4-10.4); Monocytes Absolute Auto 0.9 K/mm3 (0.1-0.6); Monocytes Percent Auto 11.8 % (2.6-8.5); Neutrophils Absolute Auto 4.6 K/mm3 (1.3-6.7); Neutrophils Percent Auto 59.1 % (45.5-73.1); Platelet Count Result 229 k/mm3 (150-375); Red Blood Count 4.01 M/mm3 (4.6-6.20); Red Cell Distribution Width 13.1 % (11.5-14.5); White Blood Count 7.8 K/mm3 (4.5-10.0)
[2024-06-06 16:56] LABS: Alanine Aminotransferase 19 U/L (6-50); Albumin Level 4.3 g/dL (3.5-5.1); Alkaline Phosphatase 52 U/L (38-126); Anion Gap 12 mmol/L (4-12); Aspartate Amino Transferase 22 U/L (17-59); Bilirubin,Total 0.6 mg/dL (0.2-1.3); Blood Urea Nitrogen 24 mg/dL (9-20); Calcium 9.2 mg/dL (8.4-10.2); Carbon Dioxide 22 mmol/L (22-30); Chloride 104 mmol/L (98-107); Estimated CRCL calculation 50 ml/min; Estimated Glomerular Filt Rate 59; Glucose 163 mg/dL (65-110); Potassium 4.5 mmol/L (3.4-5.0); Sodium 138 mmol/L (137-145)
--- NOTE | 2024-06-06 17:38 | ED_ITS ---
HPI - Weakness General Chief complaint: Weakness <Wing Hudson MD - Last Filed: 06/06/24 20:51> Stated complaint: Weakness, Fall <Wing Hudson MD - Last Filed: 06/06/24 20:51> Source: patient <Wing Hudson MD - Last Filed: 06/06/24 20:51> Mode of arrival: EMS <Wing Hudson MD - Last Filed: 06/06/24 20:51> Limitations: no limitations <Wing Hudson MD - Last Filed: 06/06/24 20:51> History of Present Illness HPI Narrative: This is a 78-year-old male, with history of spine stimulator placement, anemia, diabetes, presents emergency department complaining of bilateral lower extremity weakness. The patient states he felt somewhat weak and unsteady last night at approximately 18:00. Today, he states he was unable to stand from a kneeling position, primarily related to right leg weakness. He denies loss of sensation in the groin, loss of bowel or bladder control, fevers, chills, chest pain, lightheadedness or shortness of breath. He has no other complaints at this time. <Wing Hudson MD - Last Filed: 06/06/24 20:51> Related Data Home medications: Home Medications Medication Instructions Recorded Confirmed omega-3 fatty acids 1,000 mg 1,000 mg PO DAILY 08/31/20 04/13/24 capsule (Fish Oil Concentrate) vitamins A,C,O-gdgn-lytpsi 4,296 1 cap PO BID 08/31/20 04/13/24 mcg-226 mg-90 mg capsule (PreserVision AREDS) ferrous sulfate 325 mg (65 mg 325 mg PO .every 2-3 days 04/11/23 04/13/24 iron) tablet (Feosol) famotidine 20 mg tablet (Pepcid) 20 mg PO DAILY 10/10/23 04/13/24 <Wing Hudson MD - Last Filed: 06/06/24 20:51> Allergies/Adverse reactions: Allergies Allergy/AdvReac Type Severity Reaction Status Date / Time No Known Allergies Allergy Verified 04/13/24 14:59 <Wing Hudson MD - Last Filed: 06/06/24 20:51> Review of Systems Review of Systems: All systems reviewed & are unremarkable except as noted in HPI and below <Wing Hudson MD - Last Filed: 06/06/24 20:51> [facility] Past Medical History Medical History: Medical History Abdominal aortic aneurysm (AAA) 3.0 cm to 5.5 cm in diameter in male Benign paroxysmal positional vertigo Chronic low back pain without sciatica Depression Dyslipidemia Erectile dysfunction Former smoker GERD without esophagitis History of subdural hematoma Idiopathic peripheral neuropathy Impairment of balance Left thyroid nodule Macular degeneration of both eyes Multinodular goiter Type 2 diabetes mellitus without complication, without long-term current use of insulin Vertigo <Wing Hudson MD - Last Filed: 06/06/24 20:51> Surgical History Surgical History: Surgical History History of cataract surgery (~2021) b/l History of surgical procedure on eye proper using laser (~2017) for right eye retinal detachment Status post insertion of spinal cord stimulator (~03/2024) <Wing Hudson MD - Last Filed: 06/06/24 20:51> Family History Family History: Family History Grandparent Diabetes mellitus Mother Diabetes mellitus Family history of malignant neoplasm of cervix <Wing Hudson MD - Last Filed: 06/06/24 20:51> Social History Social History: Social History Smoking status: Former smoker Second hand tobacco smoke exposure: No Smoking end date: 07/08/14 Alcohol intake: never Substance use: never Substance use type: does not use Lack of Transportation: No Lack of Food: Never True Current Housing: I Have Housing Concerned About Future Housing: No Difficulty Paying Gas/Electric Bills: No Difficulty Paying for Meds: No Currently Unemployed: No Education: Master's Degree or Higher Difficulty w/ Childcare or Family Care: No Living arrangements: with family Additional living arrangements comments: Occupation/Education: retired Gender identity (if verbalized by the patient): Male Sexual Orientation (if Verbalized by the Patient): Straight or Heterosexual <Wing Hudson MD - Last Filed: 06/06/24 20:51> Exam Narrative: GENERAL: Well-developed, well-nourished, and in no acute distress. HEAD: Normocephalic, atraumatic. EYES: PERRLA and EOMI. CHEST: Clear to auscultation. No respiratory distress. No wheezes rales or rhonchi HEART: Regular rate and rhythm. No murmur heard. Normal peripheral pulses. ABDOMEN: Soft, nontender, nondistended, normal active bowel sounds. BACK: No midline spine tenderness to palpation, step-off or crepitus. Well- healed midline lumbar surgical scar, consistent with spinal placement. There is no overlying erythema or induration. EXTREMITIES: Normal range of motion. No edema. SKIN: Warm, dry, no rash. NEURO: Alert and oriented x3. Strength 5-/5 on flexion of the right hip. Strength 5/5 in all other extremities, sensation intact bilateral, cranial nerves 2-12 intact. Moving all 4 limbs spontaneously PSYCH: Normal mood and affect. <Wing Hudson MD - Last Filed: 06/06/24 20:51> Course Course Emergency Course: 18:51 - CT head and angiogram a of the head and neck is not concerning for acute intracranial process or large vessel occlusion. 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 CBC demonstrates mild anemia with hemoglobin of 13 but is otherwise unremarkable. Chemistries unremarkable aside from a mildly elevated blood glucose of 163. UA and urine drug screen pending. Alcohol level negative. TSH pending. Neurology is not currently available in this facility. I discussed the patient with [facility] transfer system. 19:07 - I discussed the patient with [facility] neurologist, Dr. Abbott who reviewed the patient's chart and has increased suspicion for a spinal cause for the patient's weakness, though agrees with need for MRI and rec ommends transfer to [facility]. The patient is comfortable with this plan. 20:49 - Patient signed out to overnight ED physician, Dr. Wheat pending discussion with hospitalist. <Wing Hudson MD - Last Filed: 06/06/24 20:51> 18:51 - CT head and angiogram a of the head and neck is not concerning for acute intracranial process or large vessel occlusion. 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 CBC demonstrates mild anemia with hemoglobin of 13 but is otherwise unremarkable. Chemistries unrem arkable aside from a mildly elevated blood glucose of 163. UA and urine drug screen pending. Alcohol level negative. TSH pending. Neurology is not currently available in this facility. I discussed the patient with [facility] transfer system. 19:07 - I discussed the patient with [facility] neurologist, Dr. Abbott who reviewed the patient's chart and has increased suspicion for a spinal cause for the patient's weakness, though agrees with need for MRI and recommends transfer to [facility]. The patient is comfortable with this plan. 20:49 - Patient signed out to overnight ED physician, Dr. Wheat pending discussion with hospitalist. Received patient is sign-out at 8:49 p.m. by previous provider pending transfer to [facility]. Received a call from the transfer center at [facility]. They connected me to the hospitalist Dr. Sow who after we went over the [facility]'s case including imaging studies, laboratory assessment and my own evaluation the patient is well as the previous documentation by Dr. Hudson was accepted to a neuro tele bed pending bed availability. Patient was re- evaluated, had improvement in his strength since his arrival here in the [facility] unremarkable workup. He made hemodynamically stable and is stable for transfer to their facility at this time pending bed. Patient still pending bed availability at [facility]. Accepted to the hospital to a neuro tele bed. Patient remains here in the emergency department pending bed assignment and then ALS transfer to their facility. <Toan Wheat MD - Last Filed: 06/07/24 07:32> Vital Signs Vital signs: Vital Signs Temperature 37.1 C 06/06/24 16:25 Pulse Rate 92 06/06/24 16:25 Respiratory Rate 19 06/06/24 16:25 Blood Pressure 125/72 06/06/24 16:25 Pulse Oximetry 95 06/06/24 16:25 Oxygen Delivery Room Air 06/06/24 16:25 Temperature 37.1 C 06/06/24 16:25 Pulse Rate 87 06/07/24 01:15 Respiratory Rate 16 06/07/24 01:15 Blood Pressure 100/79 06/07/24 01:16 Pulse Oximetry 97 06/07/24 01:15 Oxygen Delivery Room Air 06/06/24 16:25 <Wing Hudson MD - Last Filed: 06/06/24 20:51> Vital Signs Temperature 37.1 C 06/06/24 16:25 Pulse Rate 92 06/06/24 16:25 Respiratory Rate 19 06/06/24 16:25 Blood Pressure 125/72 06/06/24 16:25 Pulse Oximetry 95 06/06/24 16:25 Oxygen Delivery Room Air 06/06/24 16:25 Temperature 37.1 C 06/06/24 16:25 Pulse Rate 87 06/07/24 01:15 Respiratory Rate 16 06/07/24 01:15 Blood Pressure 100/79 06/07/24 01:16 Pulse Oximetry 97 06/07/24 01:15 Oxygen Delivery Room Air 06/06/24 16:25 <Toan Wheat MD - Last Filed: 06/07/24 07:32> MDM - Weakness MDM Narrative Medical decision making narrative: Plan: Labs, imaging, EKG, reassess <Wing Hudson MD - Last Filed: 06/06/24 20:51> Differential Diagnosis Differential diagnosis: Likely other (Stroke troke, spine mass, intracranial hemorrhage, metabolic abnormality, hypothyroidism, rhabdomyolysis, other) <Wing Hudson MD - Last Filed: 06/06/24 20:51> Lab Data Result diagrams: 06/06/24 16:37 06/06/24 16:37 <Wing Hudson MD - Last Filed: 06/06/24 20:51> Labs: Lab Results 06/06/24 06/06/24 06/06/24 Range/Units 16:37 18:19 18:35 WBC 7.8 (4.5-10.0) K/mm3 RBC 4.01 L (4.6-6.20) M/mm3 Hgb 13.0 L (14.0-18.0) g/dL Hct 38.3 L (42.0-52.0) % MCV 95.5 (80-100) fl MCH 32.4 (26-34) pg MCHC 33.9 (32-36) g/dl RDW 13.1 (11.5-14.5) % Plt Count 229 (150-375) k/mm3 MPV 9.2 (7.4-10.4) fl Immature Gran % (Auto) 0.3 (0-0.5) % Neut % (Auto) 59.1 (45.5-73.1) % Lymph % (Auto) 25.8 (18.3-44.2) % [place] % (Auto) 11.8 H (2.6-8.5) % Eos % (Auto) 1.8 (0-4.4) % Baso % (Auto) 1.2 (0.2-1.2) % Lymph # (Auto) 2.01 (0.9-3.2) K/mm3 [place] # (Auto) 0.9 H (0.1-0.6) K/mm3 Eos # (Auto) 0.1 (0-0.3) K/mm3 Baso # (Auto) 0.1 (0.0-0.1) K/mm3 Abs Immat Gran (auto) 0.02 (0.00-0.031) K/mm3 Absolute Neuts (auto) 4.6 (1.3-6.7) K/mm3 Absolute Nucleated RBC 0.000 (0.0-0.012) K/mm3 Nucleated RBC % 0.0 (0.0-0.2) % Sodium 138 (137-145) mmol/L Potassium 4.5 (3.4-5.0) mmol/L Chloride 104 (98-107) mmol/L Carbon Dioxide 22 (22-30) mmol/L Anion Gap 12 (4-12) mmol/L BUN 24 H (9-20) mg/dL Creatinine 1.20 (0.7-1.3) mg/dL Estim Creat Clear Calc 50 ml/min Estimated GFR 59 (59 - ) Glucose 163 H (65-110) mg/dL Calcium 9.2 (8.4-10.2) mg/dL Total Bilirubin 0.6 (0.2-1.3) mg/dL AST 22 (17-59) U/L ALT 19 (6-50) U/L Alkaline Phosphatase 52 (38-126) U/L Troponin I < 0.012 (0.000-0.034) ng/mL Total Protein 7.0 (6.3-8.2) g/dL Albumin 4.3 (3.5-5.1) g/dL TSH 1.550 (0.465-4.680) uIU/mL Urine Color Yellow (Yellow) Urine Appearance Clear (Clear) Urine pH 6.0 (5.0-9.0) Ur Specific [place] > 1.045 H (1.001-1.035) Urine Protein Negative (Negative) mg/dL Urine Glucose (UA) 1+ H (Negative) mg/dL Urine Ketones Trace H (Negative) mg/dL Ur Blood (Man) Negative (Negative) Urine Nitrate Negative (Negative) Urine Bilirubin Negative (Negative) Urine Urobilinogen 1.0 (<2.0) mg/dL Leukocyte Esterase Rfl Negative (Negative) KESHIA/UL Urine Opiates Screen Negative (Negative) Urine Methadone Screen Negative (Negative) Ur Barbiturates Screen Negative (Negative) Ur Phencyclidine Scrn Negative (Negative) Ur Amphetamine Screen Negative (Negative) U Benzodiazepines Scrn Negative (Negative) Urine Cocaine Screen Negative (Negative) U Cannabinoids Screen Negative (Negative) Ethyl Alcohol < 10 (<10) mg/dL <Wing Hudson MD - Last Filed: 06/06/24 20:51> Lab Results 06/06/24 06/06/24 06/06/24 Range/Units 16:37 18:19 18:35 WBC 7.8 (4.5-10.0) K/mm3 RBC 4.01 L (4.6-6.20) M/mm3 Hgb 13.0 L (14.0-18.0) g/dL Hct 38.3 L (42.0-52.0) % MCV 95.5 (80-100) fl MCH 32.4 (26-34) pg MCHC 33.9 (32-36) g/dl RDW 13.1 (11.5-14.5) % Plt Count 229 (150-375) k/mm3 MPV 9.2 (7.4-10.4) fl Immature Gran % (Auto) 0.3 (0-0.5) % Neut % (Auto) 59.1 (45.5-73.1) % Lymph % (Auto) 25.8 (18.3-44.2) % [place] % (Auto) 11.8 H (2.6-8.5) % Eos % (Auto) 1.8 (0-4.4) % Baso % (Auto) 1.2 (0.2-1.2) % Lymph # (Auto) 2.01 (0.9-3.2) K/mm3 [place] # (Auto) 0.9 H (0.1-0.6) K/mm3 Eos # (Auto) 0.1 (0-0.3) K/mm3 Baso # (Auto) 0.1 (0.0-0.1) K/mm3 Abs Immat Gran (auto) 0.02 (0.00-0.031) K/mm3 Absolute Neuts (auto) 4.6 (1.3-6.7) K/mm3 Absolute Nucleated RBC 0.000 (0.0-0.012) K/mm3 Nucleated RBC % 0.0 (0.0-0.2) % Sodium 138 (137-145) mmol/L Potassium 4.5 (3.4-5.0) mmol/L Chloride 104 (98-107) mmol/L Carbon Dioxide 22 (22-30) mmol/L Anion Gap 12 (4-12) mmol/L BUN 24 H (9-20) mg/dL Creatinine 1.20 (0.7-1.3) mg/dL Estim Creat Clear Calc 50 ml/min Estimated GFR 59 (59 - ) Glucose 163 H (65-110) mg/dL Calcium 9.2 (8.4-10.2) mg/dL Total Bilirubin 0.6 (0.2-1.3) mg/dL AST 22 (17-59) U/L ALT 19 (6-50) U/L Alkaline Phosphatase 52 (38-126) U/L Troponin I < 0.012 (0.000-0.034) ng/mL Total Protein 7.0 (6.3-8.2) g/dL Albumin 4.3 (3.5-5.1) g/dL TSH 1.550 (0.465-4.680) uIU/mL Urine Color Yellow (Yellow) Urine Appearance Clear (Clear) Urine pH 6.0 (5.0-9.0) Ur Specific [place] > 1.045 H (1.001-1.035) Urine Protein Negative (Negative) mg/dL Urine Glucose (UA) 1+ H (Negative) mg/dL Urine Ketones Trace H (Negative) mg/dL Ur Blood (Man) Negative (Negative) Urine Nitrate Negative (Negative) Urine Bilirubin Negative (Negative) Urine Urobilinogen 1.0 (<2.0) mg/dL Leukocyte Esterase Rfl Negative (Negative) KESHIA/UL Urine Opiates Screen Negative (Negative) Urine Methadone Screen Negative (Negative) Ur Barbiturates Screen Negative (Negative) Ur Phencyclidine Scrn Negative (Negative) Ur Amphetamine Screen Negative (Negative) U Benzodiazepines Scrn Negative (Negative) Urine Cocaine Screen Negative (Negative) U Cannabinoids Screen Negative (Negative) Ethyl Alcohol < 10 (<10) mg/dL <Toan Wheat MD - Last Filed: 06/07/24 07:32> ECG Data EKG #1: Attestation: I personally reviewed and interpreted this ECG as follows: <Wing Hudson MD - Last Filed: 06/06/24 20:51> ECG completion date: 06/06/24 <Wing Hudson MD - Last Filed: 06/06/24 20:51> ECG completion time: 16:37 <Wing Hudson MD - Last Filed: 06/06/24 20:51> Prior ECG tracings: available for review <Wing Hudson MD - Last Filed: 06/06/24 20:51> Interpretation: Significant artifact, Sinus rhythm, rate 93, normal axis, no ST segment elevations or T-wave inversions concerning for ischemia, normal intervals with QTC 412. Compared to EKG done in January 2024, first-degree AV block appears to have resolved. <Wing Hudson MD - Last Filed: 06/06/24 20:51> Discharge Plan Discharge Clinical Impression: Right leg weakness <Wing Hudson MD - Last Filed: 06/06/24 20:51> Patient Disposition: Acute Care Hospital <Wing Hudson MD - Last Filed: 06/06/24 20:51> Condition: Serious <Wing Hudson MD - Last Filed: 06/06/24 20:51> Prescriptions: No Action famotidine [Pepcid] 20 mg tablet 20 mg PO DAILY omega-3 fatty acids [Fish Oil Concentrate] 1,000 mg capsule 1,000 mg PO DAILY PreserVision AREDS [id number] capsule 1 cap PO BID ferrous sulfate [Feosol] 325 mg (65 mg iron) tablet 325 mg PO .every 2-3 days escitalopram oxalate 20 mg tablet 20 mg PO DAILY Qty: 90 1RF bupropion HCl 300 mg tablet extended release 24 hr 300 mg PO DAILY Qty: 90 1RF [id number]-algal oil [Metanx (algal oil)] 3 mg-35 mg-2 mg -90.314 mg capsule 1 cap PO BID Qty: 180 1RF pravastatin 10 mg tablet 10 mg PO QHS Qty: 90 1RF metformin 500 mg tablet extended release 24 hr 1,500 mg PO DAILY Qty: 270 1RF Rx Instructions: 500 mg in AM, 1000 mg at night meloxicam 15 mg tablet 15 mg PO DAILY Qty: 90 1RF <Wing Hudson MD - Last Filed: 06/06/24 20:51> Follow-up/Referrals: Nancy Mclaughlin MD [Primary Care Provider] - <Wing Hudson MD - Last Filed: 06/06/24 20:51>
[2024-06-06 18:44] LABS: Ethanol < 10 mg/dL (<10)
[2024-06-06 18:54] LABS: Add Urine Microscopic? NO; Appearance Urine Clear (Clear); Bilirubin Urine Negative (Negative); Blood Urine Negative (Negative); Color Urine Yellow (Yellow); Glucose Urine UA 1+ mg/dL (Negative); Ketones Urine Trace mg/dL (Negative); Leukocyte Esterase Ur Negative LEU/UL (Negative); Nitrate Urine Negative (Negative); Protein Urine Negative (Negative); Specific Grav Ur > 1.045 (1.001-1.035)
[2024-06-06 18:54] LABS: Troponin I < 0.012 ng/mL (0.000-0.034)
[2024-06-06 19:03] LABS: Amphetamine Screen Urine Negative (Negative); Barbiturate Screen Urine Negative (Negative); Benzodiazepines Screen Urine Negative (Negative); Cannabinoid Screen Urine Negative (Negative); Cocaine Screen Urine Negative (Negative); Methadone Screen Urine Negative (Negative); Opiate Screen Urine Negative (Negative); Phencyclidine Screen Urine Negative (Negative)
--- NOTE | 2024-06-06 21:35 | PC.NURSE ---
this rn spoke with JEFFREY Marcelino at transfer center
[2024-06-07 01:05] VITALS: O2SAT 97
[2024-06-07 01:15] VITALS: BP 100/79; PULSE 87; RESP 16; O2SAT 97
[2024-06-07 01:16] VITALS: BP 100/79
--- NOTE | 2024-06-07 08:24 | PC.NURSE ---
breakfast ordered at this time
[2024-06-07 08:40] VITALS: BP 127/79; PULSE 70; RESP 16; O2SAT 97
[2024-06-07 11:00] VITALS: BP 113/72; PULSE 68; RESP 12; O2SAT 97
[2024-06-07 12:00] VITALS: BP 109/69; PULSE 70; RESP 16; O2SAT 97
== END 2024-06-07 13:10 | disposition short-term general hospital (02) ==
PROVIDERS: Emergency Provider Preventive Medicine Aerospace Medicine; PCP Family Medicine
DX: R53.1 Weakness (principal); E11.42 Type 2 diabetes mellitus with diabetic polyneuropathy; E78.5 Hyperlipidemia, unspecified; D64.9 Anemia, unspecified; K21.9 Gastro-esophageal reflux disease without esophagitis; H35.30 Unspecified macular degeneration; Z96.82 Presence of neurostimulator; Z87.891 Personal history of nicotine dependence; Z98.42 Cataract extraction status, left eye; Z98.41 Cataract extraction status, right eye; Z79.84 Long term (current) use of oral hypoglycemic drugs; Z79.899 Other long term (current) drug therapy; R93.0 Abnormal findings on diagnostic imaging of skull and head, not elsewhere classified; I45.10 Unspecified right bundle-branch block
CPT/HCPCS: 36415; 70496; 70498; 71046; 72131; 80053; 80307; 81003; 82077; 84443; 84484; 85025; 93005; 99285; Q9967

== ENCOUNTER 2024-06-26 13:49 | Outpatient (CLI) | payer MEDICARE, SELFPAY ==
--- NOTE | ~2024-06-26 | US_ITS ---
EXAMINATION: US art doppler w press LE BI DATE: 06/26/2024 15:04 INDICATION: Peripheral vascular disease, unspecified. TECHNIQUE: Segmental pressures and plethysmographic and Doppler waveforms of the brachial and lower e xtremity arteries were obtained. COMPARISON: None. FINDINGS: Right and left brachial artery pressures of 98 mm Hg and 109 mm Hg, respectively, are concordant (nor mal difference <= 30 mmHg). The right high-thigh pressure index is 1.11 (normal > 1.2). The right ankle-brachial index (RADHA) is 1 .19 (normal >= 0.9-1.0). The right great toe-brachial index (TBI) is 0.72 (normal >= 0.65). Arterial Doppler waveforms are triphasic from common femoral artery to the ankle. The left high-thigh pressure index is 1.00. The left RADHA is 1.17. The left TBI is 0.61. Arterial Dopp ler waveforms are triphasic from common femoral artery to posterior tibial artery and biphasic in alba salis pedis. IMPRESSION: 1. Mildly decreased left TBI and normal left RADHA, consistent with left-sided arterial occlusive disea se. Note that RADHA may be overestimated if arteries are calcified. 2. No significant right-sided arterial occlusive disease. Reviewed, dictated and finalized at location A. ERCIAL CREDIT HEAD IMPRESSION: 1. Mildly decreased left TBI and normal left RADHA, consistent with left-sided ar terial occlusive disease. Note that RADHA may be overestimated if arteries are ca lcified. 2. No significant right-sided arterial occlusive disease.
== END 2024-06-26 13:50 | disposition home or self-care (01) ==
PROVIDERS: PCP Family Medicine; Visit Provider Family Medicine
DX: I73.9 Peripheral vascular disease, unspecified (principal)
CPT/HCPCS: 93923